=== PATIENT | male | born 1945 | race Caucasian/White ===

== ENCOUNTER 2018-07-09 06:42 | Inpatient (IN) | payer OTHER ==
[~2018-07-09] VITALS: Ht 180.3 cm; Wt 89.0 kg
[2018-07-09] MEDS ORDERED: AMPICILLIN/SULBACTAM 3 GM in SODIUM CHLORIDE 0.9% 100 ML IV ONE (07:00)
[2018-07-09] MEDS ORDERED: DIPH,PERTUSS(ACELL),TET VAC/PF 0.5 ML IM-VACC ONE ×2 (07:00→07:26)
[2018-07-09] MEDS ORDERED: SODIUM CHLORIDE FLUSH 10ML SYR IVF ONE (07:00)
--- NOTE | 2018-07-09 07:19 | NUR ---
PT REPORTS GOUT IN RIGHT 4TH TOE. PT HAS REDNESS, SWELLING, DRAINAGE, AND RED STREAKS OF THE RIGHT 4TH TOE. PT IS ALERT, ORIENTED, WITH NAD. PT IS CONNECTED TO THE MONITOR. CALL LIGHT WITHIN REACH.
[2018-07-09] MEDS ORDERED: ONDANSETRON 2MG/ML, 2ML ONE (07:26)
[2018-07-09] MEDS ORDERED: MORPHINE SULFATE 4 MG/ML, 1ML ONE (07:26)
[2018-07-09] MEDS ORDERED: MORPHINE SULFATE 4 MG/ML, 1ML IVPush PRN (07:30)
[2018-07-09] MEDS ORDERED: ONDANSETRON 2MG/ML, 2ML IVPush ONE (07:30)
[2018-07-09 07:37] LABS: BASOPHILS % (AUTO) 0 % (0-1); EOSINOPHILS % (AUTO) 0 % (1-7); LYMPHOCYTES # (AUTO) 0.75 x10^3/uL (1-3.4); LYMPHOCYTES % (AUTO) 6 % (22-44); MD NO; MEAN CORPUSCULAR HEMOGLOBIN 30.9 pg (27.5-34.5); MEAN CORPUSCULAR HGB CONC 33.2 g/dL (33.2-36.2); MEAN PLATELET VOLUME 9.8 fL (7.4-10.4); MONOCYTES # (AUTO) 1.06 x10^3/uL (0.2-0.8); MONOCYTES % (AUTO) 8 % (2-9); NEUTROPHILS # (AUTO) 11.48 x10^3/uL (1.8-6.8); NEUTROPHILS % (AUTO) 86 % (42-75); PLATELET COUNT 172 x10^3/uL (130-400); RED BLOOD COUNT 4.61 x10^6/uL (4.38-5.82); RED CELL DISTRIBUTION WIDTH 13.4 % (9.4-14.8)
--- NOTE | 2018-07-09 07:43 | NUR ---
PT MEDICATED PER ORDER.
[2018-07-09 07:44] LABS: CHLORIDE 108 mmol/L (98-107)
[2018-07-09 07:45] LABS: ALBUMIN 3.9 g/dL (3.4-5.0); ANION GAP 7 mmol/L (5-15); CREATININE 1.71 mg/dL (0.7-1.3)
[2018-07-09] MEDS ORDERED: TAMS-11 PO (08:11)
--- NOTE | 2018-07-09 08:11 | NUR ---
PT STATED THAT HE TAKES SOMETHING FOR HTN AND HIGH CHOLESTEROL BUT DOES NOT KNOW THE NAME OR DOSE.
[2018-07-09] MEDS ORDERED: ROSU5TAB PO (08:16)
[2018-07-09] MEDS ORDERED: LISI-170 PO (08:16)
--- NOTE | 2018-07-09 08:16 | NUR ---
PT FOUND HIS MED LIST, BUT IT DOES NOT HAVE DOSES. MED LIST UPDATED.
[2018-07-09] MEDS ORDERED: SODIUM CHLORIDE FLUSH 10ML SYR IVF PRN (08:30)
--- NOTE | 2018-07-09 09:39 | NUR ---
REPORT GIVEN TO DELFINO WALKER.
[2018-07-09 09:55] VITALS: BP 132/79
[2018-07-09] MEDS ORDERED: PHARMACY MAY ADJ FOR RENAL FX MC PRN (10:00)
[2018-07-09] MEDS ORDERED: GABAPENTIN 300 MG CAPSULE PO PRN (10:00)
[2018-07-09] MEDS ORDERED: ACETAMINOPHEN 325 MG TABLET PO PRN (10:00)
[2018-07-09] MEDS ORDERED: DOCUSATE 100 MG CAPSULE PO PRN (10:00)
[2018-07-09] MEDS ORDERED: POLYETHYLENE GLYCOL 17 GM PACKET PO PRN (10:00)
[2018-07-09] MEDS ORDERED: hydrALAzine 20 MG/ML, 1ML IVPush PRN (10:00)
[2018-07-09] MEDS ORDERED: BISACODYL 10 MG SUPP PR PRN (10:00)
[2018-07-09] MEDS ORDERED: VANCOMYCIN PER PHARMACY MC PRN (10:00)
[2018-07-09 10:24] LABS: HCT (SEDRATE) 43.2 % (39.2-51.8)
[2018-07-09] MEDS: morphine SULFATE 10 MG/ML, 1ML IVPush PRN ×4 (10:28→21:18)
[2018-07-09] MEDS ORDERED: VANCOMYCIN 2,000 MG in SODIUM CHLORIDE 0.9% 500 ML IV ONE (10:30)
[2018-07-09] MEDS ORDERED: PHARMACOKINETIC CONSULTATION MC ONE (10:30)
[2018-07-09] MEDS ORDERED: PHARMACOKINETIC MONITORING MC PRN (10:30)
[2018-07-09 10:49] LABS: C-REACTIVE PROTEIN, QUANT 9.9 mg/dL (0.02-0.49); THYROID STIMULATING HORMONE 0.398 mIU/L (0.358-3.740)
[2018-07-09 10:50] LABS: HEMOGLOBIN A1C 5.8 % (4.2-6.3)
[2018-07-09] MEDS: SODIUM CHLORIDE 0.9% 1,000 ML IV SCH ×2 (10:53→20:24)
[2018-07-09] MEDS: AMPICILLIN/SULBACTAM 3 GM in SODIUM CHLORIDE 0.9% 100 ML IV SCH ×2 (14:33→20:23)
[2018-07-09 14:37] VITALS: BP 118/80
[2018-07-09 20:21] VITALS: BP 104/63
[2018-07-09] MEDS: ATORVASTATIN 20 MG TABLET PO SCH (21:18)
[2018-07-10] VITALS (7 sets, daily range): BP systolic 90–148; BP diastolic 54–81
[2018-07-10] MEDS: AMPICILLIN/SULBACTAM 3 GM in SODIUM CHLORIDE 0.9% 100 ML IV SCH ×5 (02:24→22:52)
[2018-07-10] MEDS: SODIUM CHLORIDE 0.9% 1,000 ML IV SCH ×2 (04:28→12:00)
[2018-07-10] MEDS: morphine SULFATE 10 MG/ML, 1ML IVPush PRN ×3 (04:35→12:59)
[2018-07-10 05:56] LABS: BASOPHILS % (AUTO) 0 % (0-1); EOSINOPHILS # (AUTO) 0.24 x10^3/uL (0-0.4); EOSINOPHILS % (AUTO) 2 % (1-7); LYMPHOCYTES # (AUTO) 0.81 x10^3/uL (1-3.4); LYMPHOCYTES % (AUTO) 7 % (22-44); MD NO; MEAN CORPUSCULAR HEMOGLOBIN 31.5 pg (27.5-34.5); MEAN CORPUSCULAR HGB CONC 33.5 g/dL (33.2-36.2); MEAN CORPUSCULAR VOLUME 94.2 fL (81-97); MEAN PLATELET VOLUME 10.2 fL (7.4-10.4); MONOCYTES # (AUTO) 1.06 x10^3/uL (0.2-0.8); MONOCYTES % (AUTO) 9 % (2-9); NEUTROPHILS # (AUTO) 9.51 x10^3/uL (1.8-6.8); NEUTROPHILS % (AUTO) 82 % (42-75); PLATELET COUNT 162 x10^3/uL (130-400); RED BLOOD COUNT 4.32 x10^6/uL (4.38-5.82); RED CELL DISTRIBUTION WIDTH 13.6 % (9.4-14.8)
[2018-07-10 06:08] LABS: ALBUMIN 3.3 g/dL (3.4-5.0); ANION GAP 6 mmol/L (5-15); CALCIUM 8.1 mg/dL (8.5-10.1); CHLORIDE 111 mmol/L (98-107)
[2018-07-10 06:13] LABS: ALANINE AMINOTRANSFERASE 28 U/L (12-78); ALKALINE PHOSPHATASE 61 U/L (45-117); BILIRUBIN,TOTAL 0.6 mg/dL (0.2-1.0); CREATININE 1.13 mg/dL (0.7-1.3); TOTAL PROTEIN 6.4 g/dL (6.4-8.2)
[2018-07-10] MEDS: THIAMINE 100MG TABLET PO SCH ×2 (08:34→08:41)
[2018-07-10] MEDS: TAMSULOSIN 0.4 MG CAP.ER.24H PO SCH (08:34)
[2018-07-10] MEDS: VANCOMYCIN 1,800 MG in SODIUM CHLORIDE 0.9% 250 ML IV SCH (11:04)
[2018-07-10] MEDS ORDERED: FENTANYL PF 100 MCG/2ML ONE (14:53)
[2018-07-10] MEDS ORDERED: MIDAZOLAM 1 MG/ML, 2ML ONE (14:53)
[2018-07-10] MEDS ORDERED: BUPIVACAINE/PF 0.5% ONE (15:01)
[2018-07-10] MEDS ORDERED: PROPOFOL 10 MG/ML, 20ML ONE (15:06)
[2018-07-10] MEDS ORDERED: EPHEDRINE 50 MG/ML, 1ML ONE (15:06)
[2018-07-10] MEDS ORDERED: ONDANSETRON 2MG/ML, 2ML ONE (15:06)
[2018-07-10] MEDS ORDERED: MEPERIDINE/PF 25MG/0.5ML IVPush PRN (15:30)
[2018-07-10] MEDS ORDERED: OXYcodone 5 MG/5 ML ORAL.SOL UDC PO PRN (15:30)
[2018-07-10] MEDS ORDERED: FENTANYL PF 100 MCG/2ML IV PRN (15:30)
[2018-07-10] MEDS ORDERED: DIAZEPAM 5 MG/ML, 2ML IVPush PRN (15:30)
[2018-07-10] MEDS ORDERED: PROMETHAZINE 25 MG/ML, 1ML IV PRN (15:30)
[2018-07-10] MEDS ORDERED: HYDROmorphone 2 MG/ML, 1ML IVPush PRN (15:30)
[2018-07-10] MEDS ORDERED: hydrALAzine 20 MG/ML, 1ML IV PRN (15:30)
[2018-07-10] MEDS ORDERED: LABETALOL 5MG/ML, 20ML IV PRN (15:30)
[2018-07-10] MEDS ORDERED: ALBUTEROL SULFATE 2.5 MG/3 ML NPPB PRN (15:30)
[2018-07-10] MEDS ORDERED: KETOROLAC 30 MG/1 ML IV PRN (15:30)
[2018-07-10] MEDS ORDERED: ACETAMINOPHEN 325 MG TABLET PO PRN (15:30)
[2018-07-10] MEDS ORDERED: ACETAMINOPHEN 650 MG/20.3 ML UDC ONE (16:01)
[2018-07-10] MEDS ORDERED: OXYcodone 5 MG/5 ML ORAL.SOL UDC ONE (16:01)
[2018-07-10] MEDS ORDERED: ONDANSETRON 2MG/ML, 2ML IV PRN (17:30)
[2018-07-10] MEDS: LACTATED RINGERS 1,000 ML IV SCH (17:58)
[2018-07-10] MEDS: ATORVASTATIN 20 MG TABLET PO SCH (20:58)
[2018-07-11] MEDS: LACTATED RINGERS 1,000 ML IV SCH (01:46)
[2018-07-11 02:09] VITALS: BP 136/66
[2018-07-11] MEDS: AMPICILLIN/SULBACTAM 3 GM in SODIUM CHLORIDE 0.9% 100 ML IV SCH (05:41)
[2018-07-11 06:16] LABS: ALBUMIN 3.1 g/dL (3.4-5.0); ANION GAP 7 mmol/L (5-15); CALCIUM 8.1 mg/dL (8.5-10.1); CHLORIDE 110 mmol/L (98-107); CREATININE 1.07 mg/dL (0.7-1.3)
[2018-07-11 06:19] LABS: BASOPHILS # (AUTO) 0.02 x10^3/uL (0-0.1); BASOPHILS % (AUTO) 0 % (0-1); EOSINOPHILS # (AUTO) 0.11 x10^3/uL (0-0.4); EOSINOPHILS % (AUTO) 1 % (1-7); LYMPHOCYTES # (AUTO) 0.88 x10^3/uL (1-3.4); LYMPHOCYTES % (AUTO) 11 % (22-44); MD NO; MEAN CORPUSCULAR HEMOGLOBIN 31.1 pg (27.5-34.5); MEAN CORPUSCULAR VOLUME 94.2 fL (81-97); MEAN PLATELET VOLUME 9.6 fL (7.4-10.4); MONOCYTES # (AUTO) 0.56 x10^3/uL (0.2-0.8); MONOCYTES % (AUTO) 7 % (2-9); NEUTROPHILS # (AUTO) 6.43 x10^3/uL (1.8-6.8); NEUTROPHILS % (AUTO) 80 % (42-75); PLATELET COUNT 164 x10^3/uL (130-400); RED BLOOD COUNT 4.15 x10^6/uL (4.38-5.82); RED CELL DISTRIBUTION WIDTH 13.4 % (9.4-14.8)
[2018-07-11] MEDS: OXYcodone IR 5MG TABLET PO PRN ×4 (06:49→23:42)
[2018-07-11 07:04] VITALS: BP 136/66
[2018-07-11 08:42] LABS: CLOSTRIDIUM DIFFICILE ANTIGEN NEGATIVE; CLOSTRIDIUM DIFFICILE TOXIN NEGATIVE (Negative)
[2018-07-11] MEDS: THIAMINE 100MG TABLET PO SCH (09:00)
[2018-07-11] MEDS: ASPIRIN 81 MG TABLET EC PO SCH ×2 (09:57→20:24)
[2018-07-11] MEDS: TAMSULOSIN 0.4 MG CAP.ER.24H PO SCH (09:57)
[2018-07-11] MEDS: VANCOMYCIN 1,800 MG in SODIUM CHLORIDE 0.9% 250 ML IV SCH (12:31)
[2018-07-11 13:45] VITALS: BP 138/64
[2018-07-11 18:35] VITALS: BP 148/65
[2018-07-11] MEDS: ATORVASTATIN 20 MG TABLET PO SCH (20:24)
[2018-07-12 03:50] VITALS: BP 129/83
[2018-07-12] MEDS: OXYcodone IR 5MG TABLET PO PRN ×3 (04:13→17:27)
[2018-07-12 07:52] VITALS: BP 129/68
[2018-07-12] MEDS: THIAMINE 100MG TABLET PO SCH (08:31)
[2018-07-12] MEDS: ASPIRIN 81 MG TABLET EC PO SCH ×2 (08:31→22:02)
[2018-07-12] MEDS: TAMSULOSIN 0.4 MG CAP.ER.24H PO SCH (08:31)
[2018-07-12] MEDS: VANCOMYCIN 1,800 MG in SODIUM CHLORIDE 0.9% 250 ML IV SCH (11:13)
[2018-07-12 14:14] VITALS: BP 127/72
[2018-07-12 21:50] VITALS: BP 157/70
[2018-07-12] MEDS: ATORVASTATIN 20 MG TABLET PO SCH (22:02)
[2018-07-13 03:45] VITALS: BP 138/69
[2018-07-13] MEDS ORDERED: VANCOMYCIN 2,000 MG in SODIUM CHLORIDE 0.9% 500 ML IV SCH (05:00)
[2018-07-13 05:01] LABS: BASOPHILS # (AUTO) 0.02 x10^3/uL (0-0.1); BASOPHILS % (AUTO) 0 % (0-1); EOSINOPHILS # (AUTO) 0.38 x10^3/uL (0-0.4); EOSINOPHILS % (AUTO) 5 % (1-7); LYMPHOCYTES # (AUTO) 1.26 x10^3/uL (1-3.4); LYMPHOCYTES % (AUTO) 18 % (22-44); MD NO; MEAN CORPUSCULAR HEMOGLOBIN 31.7 pg (27.5-34.5); MEAN CORPUSCULAR HGB CONC 33.9 g/dL (33.2-36.2); MEAN CORPUSCULAR VOLUME 93.5 fL (81-97); MEAN PLATELET VOLUME 8.9 fL (7.4-10.4); MONOCYTES % (AUTO) 9 % (2-9); NEUTROPHILS % (AUTO) 68 % (42-75); PLATELET COUNT 207 x10^3/uL (130-400); RED BLOOD COUNT 4.71 x10^6/uL (4.38-5.82); RED CELL DISTRIBUTION WIDTH 13.1 % (9.4-14.8)
[2018-07-13 05:19] LABS: ANION GAP 8 mmol/L (5-15); CALCIUM 8.4 mg/dL (8.5-10.1); CHLORIDE 107 mmol/L (98-107)
[2018-07-13 05:20] LABS: CREATININE 1.08 mg/dL (0.7-1.3)
[2018-07-13 07:31] VITALS: BP 152/90
[2018-07-13] MEDS: THIAMINE 100MG TABLET PO SCH (08:12)
[2018-07-13] MEDS: ASPIRIN 81 MG TABLET EC PO SCH ×2 (08:12→20:42)
[2018-07-13] MEDS: TAMSULOSIN 0.4 MG CAP.ER.24H PO SCH (08:12)
[2018-07-13] MEDS: OXYcodone IR 5MG TABLET PO PRN ×2 (08:13→23:37)
[2018-07-13] MEDS: CEFAZOLIN 2,000 MG in SODIUM CHLORIDE 0.9% 50 ML IV SCH ×2 (10:30→17:41)
[2018-07-13 14:00] VITALS: BP 154/80
[2018-07-13] MEDS ORDERED: POTASSIUM CHLORIDE 20 MEQ TAB.ER.PRT PO ONE (14:30)
[2018-07-13] MEDS: LISINOPRIL 20 MG TABLET PO SCH (14:53)
[2018-07-13 20:02] VITALS: BP 118/71
[2018-07-13] MEDS: ATORVASTATIN 20 MG TABLET PO SCH (20:42)
[2018-07-14 01:23] VITALS: BP 112/67
[2018-07-14] MEDS: CEFAZOLIN 2,000 MG in SODIUM CHLORIDE 0.9% 50 ML IV SCH ×2 (02:18→10:20)
[2018-07-14] MEDS: OXYcodone IR 5MG TABLET PO PRN (04:01)
[2018-07-14 07:25] VITALS: BP 143/80
[2018-07-14] MEDS ORDERED: MULTIVITAMINS/MINERALS TABLET PO SCH (10:00)
[2018-07-14] MEDS: TAMSULOSIN 0.4 MG CAP.ER.24H PO SCH (10:17)
[2018-07-14] MEDS: ASPIRIN 81 MG TABLET EC PO SCH (10:17)
[2018-07-14] MEDS: LISINOPRIL 20 MG TABLET PO SCH (10:17)
[2018-07-14] MEDS: THIAMINE 100MG TABLET PO SCH (10:17)
[2018-07-14] MEDS ORDERED: AMOX1TAB64 PO (11:46)
[2018-07-14] MEDS ORDERED: THIA100T67 PO (11:46)
[2018-07-14] MEDS ORDERED: ASPI81TA45 PO (11:46)
[2018-07-14] MEDS ORDERED: MULT-484 PO (11:46)
[2018-07-14] MEDS ORDERED: OXYC5TAB3 PO (11:46)
[2018-07-14] MEDS ORDERED: IBUP-1222 PO (12:20)
[2018-07-14] MEDS ORDERED: CEFAZOLIN PMX 2GM/50ML 50 ML IVPB SCH (17:41)
== END 2018-07-14 14:20 | disposition home or self-care (01) | DRG 853 ==
LOC: ED 08:35 → EDIP 08:45 → 4NOR 09:51 → 4EST 07-10 23:19 → 4WST 07-11 17:35 → DCLOUNGE 07-14 14:01
PROVIDERS: ADMIT Hospitalist; ATTEND Hospitalist
PROC: 0Y6V0Z0 Detachment at Right 4th Toe, Complete, Open Approach (ICD-10-PCS; principal; 2018-07-10 15:00)
DX: A41.9 Sepsis, unspecified organism (principal); N17.0 Acute kidney failure with tubular necrosis; L02.611 Cutaneous abscess of right foot; M86.8X7 Other osteomyelitis, ankle and foot; K52.1 Toxic gastroenteritis and colitis; F10.20 Alcohol dependence, uncomplicated; E78.5 Hyperlipidemia, unspecified; I10 Essential (primary) hypertension; L03.031 Cellulitis of right toe; M10.00 Idiopathic gout, unspecified site; N40.0 Benign prostatic hyperplasia without lower urinary tract symptoms; Z85.46 Personal history of malignant neoplasm of prostate; Z85.820 Personal history of malignant melanoma of skin; Z92.3 Personal history of irradiation; Z87.891 Personal history of nicotine dependence; Z80.42 Family history of malignant neoplasm of prostate; Z80.51 Family history of malignant neoplasm of kidney; Z87.442 Personal history of urinary calculi; Z90.49 Acquired absence of other specified parts of digestive tract; T50.4X5A Adverse effect of drugs affecting uric acid metabolism, initial encounter
CPT/HCPCS: 36415; 80048; 80053; 80202; 82040; 83036; 83605; 83735; 84443; 84550; 85025; 85651; 86140; 87040; 87070; 87075; 87077; 87147; 87186; 87205; 87324; 88305; 88311; 90471; 90715; 93005; 96374; 96375; 99285; G0378; J0295; J0690; J2250; J2405; J2704; J3010; J3370; J3490; J2270; J7030; J7040; J7050; J7120; J7512